=== PATIENT | female | born 1950 | race Caucasian/White ===

== ENCOUNTER → 2016-05-15 | Outpatient (CLI) | payer MEDICARE, OTHER ==
[~2016-05-15] MED LIST: AMBIEN 5MG TABLE5 MG PO; BENADRYL50 MG PO; DESYREL 50MG50 MG PO; FEMININE SUPPOR1 TA2 PO; IBU600 MG PO; MELATONIN5 M1 SL; NEURONTIN300 MG/CAP PO; PERCOCET 325 MG1 TA2 PO; PRIL40 PO; TYLENOL 500MG500 MG PO; ULTRAM 50MG TAB50 MG PO; XANAX 0.5MG0.5 MG PO; ZOFRAN ODT8 MG PO; ZOLOFT 25MG25 MG PO
== END ==
LOC: COL.RAD 06:31
DX: K86.2 Cyst of pancreas (principal); Z53.09 Procedure and treatment not carried out because of other contraindication; R10.84 Generalized abdominal pain; R19.7 Diarrhea, unspecified